=== PATIENT | female | born 1955 | race Asian ===

== ENCOUNTER 2017-03-05 06:35 | Emergency (ER) | payer BC ==
[~2017-03-05] VITALS: Ht 157.5 cm; Wt 55.0 kg
[2017-03-05 06:43] VITALS: Ht 157.5 cm; Wt 55.0 kg
--- NOTE | 2017-03-05 08:13 | RADRPT ---
PROCEDURE: XR Ankle. CLINICAL INDICATION: Left ankle pain TECHNIQUE: 3 views of the left ankle were performed. COMPARISON: None. FINDINGS: There is no evidence of acute fracture. Alignment is normal. Joint spaces are preserved. There is mild focal lateral soft tissue swelling near the distal fibula. IMPRESSION: 1. No radiographic evidence of acute osseous abnormality. 2. Mild focal soft tissue swelling laterally at the tip of the distal fibula. RPTAT: UU .Fahad Villa MD, MD Date Time Electronically viewed and signed by .Fahad Villa MD, on 03/05/2017 08:12 .K/
--- NOTE | 2017-03-05 08:16 | ERD ---
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 States it got worse last night while she is at work. 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 States the pain was intermittent. States that she has not taken any medication for the pain. States that many years ago she injured her ankle playing tennis but denies any recent trauma. Denies any fevers or chills. States she has pain with ambulation. ROS All systems reviewed and are negative except as per history of present illness. Medications Home Meds Active Scripts Acetaminophen* (Tylophen*) 500 Mg Capsule, 1 CAP PO Q6H Y for PAIN AND OR ELEVATED TEMP, #30 CAP Prov:PANFILO JONES PA-C 03/05/17 Ibuprofen* (Motrin*) 800 Mg Tab, 800 MG PO Q6, #30 TAB Prov:PANFILO JONES PA-C 03/05/17 Allergies Allergies: Coded Allergies: No Known Drug Allergy (Verified Allergy, Mild, 03/05/17) PMhx/Soc History of Surgery: Yes (hysterectomy) Anesthesia Reaction: No Hx Neurological Disorder: No Hx Respiratory Disorders: No Hx Cardiac Disorders: Yes (htn) Hx Psychiatric Problems: No Hx Miscellaneous Medical Probl: Yes (gall stones , lt breast ca , predaibetic ) Hx Alcohol Use: No Hx Substance Use: No Hx Tobacco Use: No Smoking Status: Never smoker Physical Exam Vitals Vital Signs Date Time Temp Pulse Resp B/P Pulse Ox O2 Delivery O2 Flow Rate FiO2 03/05/17 06:43 98.3 64 16 136/70 98 Physical Exam Const: NAD Head: Atraumatic Eyes: Normal Conjunctiva ENT: Normal External Ears, Nose and Mouth. Neck: Full range of motion..~ No meningismus. Resp: Clear to auscultation bilaterally Cardio: Regular rate and rhythm, no murmurs Abd: Soft, non tender, non distended. Normal bowel sounds Skin: No petechiae or rashes MSK: Ankle with no obvious deformity. No effusion. No ecchymosis. No erythema. Tender to palpation Achilles, syndesmosis. Decreased range of motion secondary to pain. Pulses 2+. Distal neurovascularly intact. No calf tenderness. Neur: Awake and alert Psych: Normal Mood and Affect Results 24 hrs Current Medications Medications (Trade) Dose Ordered Sig/Raghu Route PRN Reason Start Time Stop Time Status Last Admin Dose Admin Ibuprofen (Motrin) 800 mg ONCE ONCE PO 03/05/17 08:30 03/05/17 08:31 03/05/17 08:27 DIAGNOSTIC IMAGING REPORT Patient: RONDA PEARSON : 1955 Age: 61 Sex: F MR #: [id number] DOS: 03/05/17 0000 Ordering MD: PANFILO JONES PA-C Location: [facility] Room/Bed: PROCEDURE: XR Ankle. CLINICAL INDICATION: Left ankle pain TECHNIQUE: 3 views of the left ankle were performed. COMPARISON: None. FINDINGS: There is no evidence of acute fracture. Alignment is normal. Joint spaces are preserved. There is mild focal lateral soft tissue swelling near the distal fibula. IMPRESSION: 1. No radiographic evidence of acute osseous abnormality. 2. Mild focal soft tissue swelling laterally at the tip of the distal fibula. RPTAT: UU .Fahad Villa MD, MD Date Time Electronically viewed and signed by .Fahad Villa MD, on 03/05/2017 08: 12 .K/ CC: PANFILO JONES PA-C Procedures/MDM This is a 61-year-old female presents the emergency department today complaining of left ankle pain that is been intermittent for the past week and worse last night. 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 Given that patient is having pain with ambulation I did obtain images. Per the radiology report images of the left ankle showed no radiographic evidence of acute osseous abnormality. There is mild focal soft tissue swelling laterally at the tip of the distal fibula. Low suspicion for acute fracture or dislocation. Patient is afebrile and otherwise well-appearing. There is no erythema or warmth. I have low suspicion for septic joint or gout. Patient initially declined pain medication here in the emergency department and then asked for Motrin. This was given to her. She did not want any narcotics for home. She is given a prescription for Tylenol and Motrin. She had come in with an [place] wrap on her ankle and her ankle was rewrapped. She was also given crutches to help ambulate. I explained to her that she may do touchdown weightbearing. Patient was also given a work note. She is instructed to follow -up with her primary care doctor for possible referral to environmental monitoring specialist. I did also explain to the patient that given that she has pain in her Achilles as well that this may be from wearing nonsupportive shoes. Patient understood. At this time the patient is stable for discharge and outpatient management. Patient should follow up with their PCP in the next 1-2 days. They may return to the emergency department sooner for any persistent or worsening of symptoms. Patient understood and agreed with the plan. Discussed the patient with Dr. Bermudez and he is in agreement with the plan. Departure Diagnosis: Primary Impression: Ankle pain Chronicity: acute Laterality: left Qualified Code: M25.572 - Acute left ankle pain Condition: Fair PANFILO JONES PA-C Mar 05, 2017 08:16
[2017-03-05] MEDS ORDERED: IBUP800T25 PO (08:26)
[2017-03-05] MEDS ORDERED: ACET500C5 PO (08:27)
[2017-03-05] MEDS ORDERED: IBUPROFEN 800 MG TAB PO ONE (08:30)
[2017-03-05 08:53] VITALS: BP 123/69; PULSE 73; RESP 20; TEMP 98.3
== END 2017-03-05 08:54 | disposition home or self-care (01) ==
LOC: FTE 06:35
DX: M25.572 Pain in left ankle and joints of left foot (principal); I10 Essential (primary) hypertension; Z85.3 Personal history of malignant neoplasm of breast
CPT/HCPCS: 73610

== ENCOUNTER 2017-12-10 01:08 | Emergency (ER) | END 2017-12-10 03:16 | disposition home or self-care (01) ==

== ENCOUNTER 2018-02-09 07:36 | Emergency (ER) | END 2018-02-09 08:16 | disposition home or self-care (01) ==